=== PATIENT | female | born 2000 | race Hispanic/Latino ===

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

== ENCOUNTER 2019-08-03 14:50 | Inpatient (IN) | payer MEDICAID, OTHER, SELFPAY ==
[~2019-08-03 14:50] MED LIST: Bupivacaine/Epinephrine 0.25% 30 ML VIAL ONE
[2019-08-03] MEDS ORDERED: NS / Oxytocin 40 units/1000ml 1,000 ML IV PRN ×2 (15:31→15:35)
[2019-08-03] MEDS ORDERED: Lidocaine 1% (PF) 30 ML VIAL SC PRN ×2 (15:31→15:35)
[2019-08-03] MEDS: Lactated Ringer's 1,000 ML IV SCH ×2 (15:33→17:13)
[2019-08-03] MEDS ORDERED: Ibuprofen 800 MG TAB PO PRN (15:35)
[2019-08-03] MEDS ORDERED: Ondansetron PF 4 MG/2 ML Vial IVP PRN (15:35)
[2019-08-03] MEDS ORDERED: hydrALAZINE 20 MG/ML VIAL SLOW IVP PRN ×2 (15:35→21:05)
[2019-08-03] MEDS ORDERED: Promethazine HCl 25 MG/ML VIAL IM PRN (15:35)
[2019-08-03] MEDS ORDERED: Acetaminophen 500 MG TAB PO PRN ×2 (15:35→20:18)
--- NOTE | 2019-08-03 15:39 | PDOC.FPROB ---
FMR OB H&P: HPI - History of Present Illness Chief Complaint: contractions Indentification: 19 yo at 38.2 wga by LMP c/w 14.6 wk sono History of Present Illness: Patient presents w/ father of baby saying she had contractions starting at 8 am this morning. Denies LOF and cleve VB. + FM. Noted some brown spotting and mucus. Denies headache, vision changes. Primary Care Physician: PNC: Fred FMR OB H&P: Current - Care : 2 Para: 1001 Gestational age: 38.2 Due date: 08/15/2019 Dating Criteria: LMP c/w 14.6 wk sono Course/Complications: Anemia of - OB Labs Blood type: O RH: positive Antibody Screen: negative HIV: negative RPR: negative HepBsAg: negative Rubella: immune Gonorrhea: negative Chlamydia: negative 1 hour gtt: 54 GBS: negative H&H: 10.4/30.0 Platelets: 267 FMR OB H&P: History - Past Medical History PMH: none - OB History OB History: 1 at 38 weeks. - ENROLLMENT COORDINATOR History ENROLLMENT COORDINATOR History: none - Surgical History Sx History: none - Social History Social History: Denies smoking, drinking alcohol, drugs. - Family History Family History: none FMR OB H&P: Medications - Current Home Medications: Medication Instructions Recorded Confirmed Type No Known 08/03/19 08/03/19 History Allergies/Adverse Reactions: Allergies Allergy/AdvReac Type Severity Reaction Status Date / Time No Known Allergies Allergy Unverified 07/02/17 15:55 FMR OB H&P: ROS - Review of Systems General: denies: fever/chills Eyes: denies: vision changes, double vision ENT: denies: sore throat Cardiovascular: denies: chest pain Respiratory: denies: cough, shortness of breath Gastrointestinal: reports: abdominal pain. denies: nausea, vomiting Genitourinary (Female): reports: contractions. denies: dysuria, vaginal bleeding Musculoskeletal: denies: pain, swelling Neurologic: denies: seizures Integumentary: denies: rash Endocrine: denies: polyuria Hematologic/Lymphatic: denies: prolonged or excessive bleeding Psychological: denies: depression, anxiety FMR OB H&P: Vital Signs - Maternal Vital signs: Vital Signs - First Documented Temp Pulse Resp BP 98.3 F 85 18 112/75 08/03/19 15:12 08/03/19 15:12 08/03/19 15:12 08/03/19 15:12 - Heart Tones Baseline: 147 (cat 1) Variability: moderate Acceleration: present Deceleration: absent Category: category 1 [place] contractions every: 2 min FMR OB H&P: Physical Exam - Physical Exam General: awake, alert and oriented (in moderate distress) HEENT: normocephalic and atraumatic, MMM, conjunctiva clear, no scleral icterus , grossly normal vision, grossly normal hearing, oropharynx clear Neck: trachea midline Heart: RRR, normal S1/S2, no murmurs/rubs/gallops General: CTAB, no respiratory distress Abdomen: soft, gravid Skin: no rash Lymphatic: no unusual bruising or bleeding, no petechia Psychiatric: intact recent and remote memory, normal mood and affect - Pelvic Exam Vulva: normal hair distribution, no masses SVE: /-1 Membranes: intact Presentation: cephalic Estimated Weight: 6 lbs FMR OB H&P: A/P - Problem List (1) Current Visit: Yes Status: Acute Qualifiers: Weeks of gestation: 38 weeks Qualified Code(s): Z3A.38 - 38 weeks gestation of Disposition: 19 yo here in active labor, multiparous: - admit to L&D - GBS neg, no abx indicated - pt desires epidural, consult to anesthesia placed - recheck cervix in 1 hour. - membranes intact - cat 1 strip - continue expectant mgmt Discussion: Date/Time: 08/03/191538 This H&P was discussed with [] and [] who agree with the above documentation and plan. Signature: Shane Piedra MD PGY1 Addendum - Attending - Attending Attestation Date/Time: 08/03/19 418 I personally evaluated the patient and discussed the management with Dr. Piedra. I agree with the History, Examination, Assessment and Plan documented above with any addition or exceptions noted below. Term IUP in labor. GBS negative. Anticipate .
[2019-08-03] MEDS ORDERED: Fentanyl 4 mcg/Bup 0.1% Cadd 100 ML ONE (15:56)
[2019-08-03 16:02] VITALS: BMI 25.1
[2019-08-03 16:05] LABS: Hemoglobin 11.7 g/dL (12.0-16.0); Mean Corpuscular HGB CONC 34.3 g/dL (32.0-36.0); Mean Corpuscular Hemoglobin 28.2 pg (25.0-35.0); Mean Corpuscular Volume 82.2 fL (78.0-98.0); Mean Platelet Volume 10.2 fL (7.4-10.4); Platelet Count 225 thou/uL (130-400); RBC Distribution Width 14.4 % (11.5-14.5); Red Blood Cell (RBC) Count 4.14 mill/uL (4.00-5.20); White Blood Cell (WBC) Count 10.7 thou/uL (4.8-10.8)
[2019-08-03 16:43] LABS: Syphilis Antibody Nonreactive (Nonreactive); Syphilis Antibody Index 0.08 S/CO (<1.00 Non-Reactive)
[2019-08-03 17:13] LABS: HBSAg Index 0.25 S/CO (0-0.99); Hep B Surf Ag Non-Reactive S/CO (NonReactive)
[2019-08-03 17:14] LABS: HIV (1/2) Antibody/Antigen Non-Reactive (NonReactive); HIV 1/2 INDEX 0.12 S/CO (<1.00)
--- NOTE | 2019-08-03 17:42 | PDOC.OBLPN ---
FMR OB Labor PN: Subj - Interval History Hospital Day: 1 Chief Complaint: contractions Indentification: @ 38.2 by 14.5 week sono Interval History: Epidural placed at ~1630. Pain much improved. FMR OB Labor PN: Obj - Maternal Vital signs: BP: 102/59 HR: 69 Wt: 52 kg - Procedures AROM: clear fluid Resuscitative measures: maternal IV fluids FMR OB Labor PN: Exam - Physical Exam General: NAD HEENT: no scleral icterus, grossly normal vision, grossly normal hearing, good dention Neck: supple, FROM General: no respiratory distress Abdomen: gravid, non-tender Neurological: cranial nerves II through XII intact, no focal deficit Psychiatric: intact recent and remote memory, good judgement and insight, normal mood and affect - Pelvic Exam Vulva: normal hair distribution, appropriate seamus stage, no masses, no lesions Deviation from normal: scant amount of curd-like white d/c noted on SVE SVE: /-1 @ 1737 Milian score: 11 Membranes: ruptured @ ~1737 Presentation: cephalic FMR OB Labor PN: Data - Labs Lab results: Laboratory Results - last 24 hr 08/03/19 08/03/19 08/03/19 15:47 15:47 15:47 WBC 10.7 RBC 4.14 Hgb 11.7 L Hct 34.1 L MCV 82.2 MCH 28.2 MCHC 34.3 RDW 14.4 Plt Count 225 MPV 10.2 Syphilis IgG/IgM Ab Nonreactive Hep Bs Antigen Non-Reactive HIV 1&2 Antigen & Ab Non-Reactive Blood Type Antibody Screen 08/03/19 15:47 WBC RBC Hgb Hct MCV MCH MCHC RDW Plt Count MPV Syphilis IgG/IgM Ab Hep Bs Antigen HIV 1&2 Antigen & Ab Blood Type O POSITIVE Antibody Screen NEGATIVE FMR OB Labor PN: A/P - Problem List (1) Current Visit: Yes Status: Acute Qualifiers: Weeks of gestation: 38 weeks Qualified Code(s): Z3A.38 - 38 weeks gestation of (2) Anemia affecting in third trimester Current Visit: Yes Status: Chronic Code(s): O99.013 - ANEMIA COMPLICATING , THIRD TRIMESTER (3) Vulvovaginal candidiasis Current Visit: Yes Status: Acute Code(s): B37.3 - CANDIDIASIS OF VULVA AND VAGINA Disposition: 18 yo @ 38.2 WGA by 14.5 sono who presented to L&D in active labor. # @ 38.2 WGA by 14.5 sono in active labor: - Epidural placed @ ~1630. Patient resting comfortably through contractions. - cat 1 strip, vivi regularly every 2-3 minutes. - AROM @ ~1737 following polo & epidural placement. Clear fluid noted. - GBS neg, no abx indicated - continue expectant mgmt, repeat SVE in 1-2 hours or sooner should patient report increased pressure #anemia in : - H/H 11.7/34.1 on admission - Resume PNVs PP. #Vulvovaginal candidiasis: - Will treat w/ PO flagyl following delivery. Discussion: Date/Time: 08/03/19 464 This H&P was discussed with Dr. Troncoso who agrees with the above documentation and plan.
--- NOTE | 2019-08-03 19:20 | PDOC.OBLPN ---
FMR OB Labor PN: Subj - Interval History Hospital Day: 1 Chief Complaint: contractions Indentification: @ 38.2 WGA by 14.5 week sono Interval History: Repeat SVE revealed patient was /0. FMR OB Labor PN: Obj - Maternal Vital signs: BP: 118/69 HR: 70 Wt: 52 kg - Procedures AROM: clear fluid Resuscitative measures: maternal IV fluids, maternal position change FMR OB Labor PN: Exam - Physical Exam General: NAD HEENT: grossly normal vision, grossly normal hearing Neck: supple, FROM General: no respiratory distress Abdomen: gravid Musculoskeletal: FROM in all four extremities Neurological: cranial nerves II through XII intact, sensation to pain,touch and proprioception grossly normal, no focal deficit Skin: no rash, good tugor Psychiatric: intact recent and remote memory, good judgement and insight, normal mood and affect - Pelvic Exam Vulva: normal hair distribution, appropriate seamus stage, no masses, no blood SVE: /0 Membranes: ruptured Presentation: cephalic FMR OB Labor PN: Data - Labs Lab results: Laboratory Results - last 24 hr 08/03/19 08/03/19 08/03/19 15:47 15:47 15:47 WBC 10.7 RBC 4.14 Hgb 11.7 L Hct 34.1 L MCV 82.2 MCH 28.2 MCHC 34.3 RDW 14.4 Plt Count 225 MPV 10.2 Syphilis IgG/IgM Ab Nonreactive Hep Bs Antigen Non-Reactive HIV 1&2 Antigen & Ab Non-Reactive Blood Type Antibody Screen 08/03/19 15:47 WBC RBC Hgb Hct MCV MCH MCHC RDW Plt Count MPV Syphilis IgG/IgM Ab Hep Bs Antigen HIV 1&2 Antigen & Ab Blood Type O POSITIVE Antibody Screen NEGATIVE FMR OB Labor PN: A/P - Problem List (1) Current Visit: Yes Status: Acute Qualifiers: Weeks of gestation: 38 weeks Qualified Code(s): Z3A.38 - 38 weeks gestation of (2) Anemia affecting in third trimester Current Visit: Yes Status: Chronic Code(s): O99.013 - ANEMIA COMPLICATING , THIRD TRIMESTER (3) Vulvovaginal candidiasis Current Visit: Yes Status: Acute Code(s): B37.3 - CANDIDIASIS OF VULVA AND VAGINA Disposition: 18 yo @ 38.2 WGA by 14.5 sono who presented to L&D in active labor. # @ 38.2 WGA by 14.5 sono in active labor: - Epidural placed @ ~1630 w/ AROM @ ~1737. Clear fluid noted. Repeat SVE @ 191 10/100/0. - Patient resting comfortably through contractions. Cat 1 strip, vivi regularly every 2-3 minutes. - GBS neg, no abx indicated - continue expectant mgmt, repeat SVE in 1 hour or sooner should patient report increased pressure; will change maternal position in an attempt to assist with descent #anemia in : - H/H 11.7/34.1 on admission - Resume PNVs PP. #Vulvovaginal candidiasis: - Documented infection per chart review from office visit on 07/30/19 & thick white d/c noted on first SVE. - Will treat w/ PO flagyl following delivery. Discussion: Date/Time: 08/03/191917 This H&P was discussed with Dr. Retana who agrees with the above documentation and plan.
--- NOTE | 2019-08-03 20:28 | PDOC.OPDEL ---
OB Operative/Delivery Note Delivery Dr/Surgeon: Scott Pre-Delivery Diagnosis: active labor Procedure/Post Delivery Dx: spontaneous vaginal delivery Anesthesia: epidural - Findings new baby Sex: female - 1 min: 9 - 5 min: 9 - Additional Findings/Plan Placenta delivered: spontaneous Repaired Obstetrical Laceration: none Estimated blood loss: QBL 225 Compilations/Other Findings: Delivering Physician: Guerrero Ibarra Attending: Mazin Procedure: Spontaneous Vaginal Delivery Anesthesia: epidural QBL: 225 ml Pre-op Diagnosis: 1. Term intrauterine in labor Post-op Diagnosis: 1. Term intrauterine , delivered Indications: A 18 y/o female presents in active labor. Delivery Note: This is 18 yo F @ 38.2 wks who delivered a viable F at 1953 on 08/03/19. Following an uneventful antepartum course, a vigorous F was delivered over an intact perineum in the straight occipitoanterior position. Shoulders and then remainder of the body delivered. No nuchal cord. The head was held down and mouth and nares were bulb suctioned. Cord clamped after delayed cord clamping and cut and cord blood collected. Placenta delivered intact in the Eason presentation with a 3 vessel cord noted. Fundal massage was performed and the fundus was firm. The cervix and vagina were inspected and found to be free of lacerations. went to nursery in good condition for routine care. Apgars were 9/9 at 1 & 5 minutes, respectively. Patient tolerated delivery well and went to after routine recovery/ care. Post delivery plan: routine recovery Addendum - Attending - Attending Attestation Date/Time: 08/04/19 0215 I personally assisted with and supervised the .
[2019-08-03] MEDS ORDERED: FLU VACC QS2019-20(6MOS UP)/PF 60 MCG/0.5 ML SYRINGE IM ONE (21:00)
[2019-08-03] MEDS ORDERED: Lanolin Ointment 7 GM TUBE TOP PRN (21:05)
[2019-08-03] MEDS ORDERED: Bisacodyl 10 MG SUPP PR PRN (21:05)
[2019-08-03] MEDS ORDERED: Diphenoxylate HCl/Atropine Tablet PO PRN ×2 (21:05)
[2019-08-03] MEDS ORDERED: NS / Oxytocin 40 units/1000ml 1,000 ML IV SCH (21:05)
[2019-08-03] MEDS ORDERED: Misoprostol 200 MCG TAB PR PRN (21:05)
[2019-08-03] MEDS ORDERED: Methylergonovine 0.2 MG/ML VIAL IM PRN (21:05)
[2019-08-03] MEDS ORDERED: diphenhydrAMINE 25 MG CAP PO PRN (21:05)
[2019-08-03] MEDS ORDERED: Milk Of Magnesia 30 ML UDCUP PO PRN (21:05)
[2019-08-03] MEDS ORDERED: Carboprost 250 MCG/ML AMP IM PRN (21:05)
[2019-08-03] MEDS ORDERED: Docusate Calcium (SURFAK) 240 MG CAP PO SCH (21:15)
[2019-08-03] MEDS: Ibuprofen 800 MG TAB PO SCH (22:32)
[2019-08-04] MEDS: Ibuprofen 800 MG TAB PO SCH ×3 (05:39→21:23)
--- NOTE | 2019-08-04 07:06 | PDOC.OBPPN ---
FMR OB PN: Subj - Interval History Hospital Day: 2 Day: 1 Chief Complaint: None Indentification: G2 now P2002 who is PP day #1 s/p term . Interval History: Tolerating PO & ambulating. Pain controlled. No yet voided. FMR OB PN: Obj - Maternal Vital signs: BP: 100/54 HR: 61 RR: 16 Tmax: 98.3F Pox: 98% on RA Wt: 52.617 kg - Urine output I&O: 08/03/19 08/04/19 08/05/19 06:59 06:59 06:59 Output Total 278 Balance -278 - Lochia Lochia: normal - Pain Management Pain scale: 0 Intervention: oral medication FMR OB PN: Exam - Physical Exam General: NAD, awake, alert and oriented HEENT: no scleral icterus, grossly normal vision, grossly normal hearing Neck: supple, FROM Heart: RRR, normal S1/S2, pulses present, no edema General: CTAB, no respiratory distress, good air movement, no rales/rhonchi, no wheezing, no retractions Abdomen: soft, fundus(cm) (firm below the umbilicus), bowel sound present Musculoskeletal: normal gait and station, FROM in all four extremities Neurological: cranial nerves II through XII intact, sensation to pain,touch and proprioception grossly normal, no focal deficit Skin: no rash, capillary refill <2 seconds Lymphatic: no unusual bruising or bleeding, no purpura, no petechia Psychiatric: intact recent and remote memory, good judgement and insight, normal mood and affect - Pelvic Exam : no edema, normal lochia FMR OB PN: Data - Labs Lab results: Laboratory Results - last 24 hr 08/03/19 08/03/19 08/03/19 15:47 15:47 15:47 WBC 10.7 RBC 4.14 Hgb 11.7 L Hct 34.1 L MCV 82.2 MCH 28.2 MCHC 34.3 RDW 14.4 Plt Count 225 MPV 10.2 Syphilis IgG/IgM Ab Nonreactive Hep Bs Antigen Non-Reactive HIV 1&2 Antigen & Ab Non-Reactive Blood Type Antibody Screen 08/03/19 15:47 WBC RBC Hgb Hct MCV MCH MCHC RDW Plt Count MPV Syphilis IgG/IgM Ab Hep Bs Antigen HIV 1&2 Antigen & Ab Blood Type O POSITIVE Antibody Screen NEGATIVE FMR OB PN: A/P - Problem List (1) Current Visit: Yes Status: Acute Qualifiers: Weeks of gestation: 38 weeks Qualified Code(s): Z3A.38 - 38 weeks gestation of (2) Anemia affecting in third trimester Current Visit: Yes Status: Chronic Code(s): O99.013 - ANEMIA COMPLICATING , THIRD TRIMESTER (3) Vulvovaginal candidiasis Current Visit: Yes Status: Acute Code(s): B37.3 - CANDIDIASIS OF VULVA AND VAGINA Disposition: 18 yo G2 now P2002 who is PP day #1 s/p @ 38.2 WGA. #PP day #1 s/p term : - Tolerating PO and ambulating normally. Denies passing any flatus or voiding yet. Will monitor I&Os closely. Continue KELVIN motrin for pain control. Continue routine PP care. #anemia in : - H/H 11.7/34.1 on admission - Resume PNVs today. #Vulvovaginal candidiasis: - Documented infection per chart review from office visit on 07/30/19 & thick white d/c noted on first SVE. - Will treat w/ PO flagyl 150mg x1 this AM. #elevated BP w/o diagnosis of HTN or hypertensive disorder or : - had 1 elevated BP since delivery at 147/64 @ 22:15 last night. All BPs normal since. Denies any CREWS, vision changes, CP, SOB or LE edema. Will continue to monitor vitals closely. Dispo: Anticipate d/c home tomorrow pending clinical course. Discussion: Date/Time: 08/04/19 0705 This H&P was discussed with Dr. Adamson who agrees with the above documentation and plan. Addendum - Attending - Attending Attestation Date/Time: 08/04/19 1017 I personally evaluated the patient and discussed the management with Dr. Ibarra I agree with the History, Examination, Assessment and Plan documented above with any addition or exceptions noted below - Patient wihtout complaints. HAs not urinate yet. Afebrile VSS. A/P: 1) PPD#1 s/p - continue current care. Will check bladder scan and plan for I/O cath if unable to void.
[2019-08-04] MEDS: Ferrous Sulfate 325 MG TAB PO SCH ×2 (08:03→13:03)
[2019-08-04] MEDS: Docusate Calcium (SURFAK) 240 MG CAP PO SCH ×2 (08:04→21:23)
[2019-08-04] MEDS: Prenatal Vitamin 1 TAB PO SCH (08:04)
[2019-08-04] MEDS ORDERED: Fluconazole 100 MG TAB PO SCH (09:00)
[2019-08-05] MEDS: Ibuprofen 800 MG TAB PO SCH (06:23)
--- NOTE | 2019-08-05 06:53 | PDOC.OBPPN ---
FMR OB PN: Subj - Interval History Hospital Day: 3 Day: 2 Chief Complaint: None Indentification: G2 now P2002 who is PP day #2 s/p term . Interval History: Urinary retention resolved yesterday AM. Tolerating PO and ambulating. FMR OB PN: Obj - Maternal Vital signs: BP: 105/59 HR: 60 RR: 16 Tmax: 98.4F Pox: 95% on RA Wt: 52 kg - Urine output I&O: 08/03/19 08/04/19 08/05/19 06:59 06:59 06:59 Output Total 278 2450 Balance -278 -2450 - Lochia Lochia: normal - Pain Management Pain scale: 0 Intervention: oral medication FMR OB PN: Exam - Physical Exam General: NAD, awake, alert and oriented HEENT: normocephalic and atraumatic, MMM, grossly normal vision, grossly normal hearing Neck: supple, FROM Heart: RRR, normal S1/S2, pulses present, no edema General: CTAB, no respiratory distress, good air movement, no rales/rhonchi, no wheezing, no retractions Abdomen: soft, fundus(cm) (firm just below the umbilicus), bowel sound present Musculoskeletal: normal gait and station, FROM in all four extremities Neurological: cranial nerves II through XII intact, sensation to pain,touch and proprioception grossly normal, no focal deficit Skin: no rash, good tugor : no edema, appropriately tender Psychiatric: intact recent and remote memory, good judgement and insight, normal mood and affect FMR OB PN: A/P - Problem List (1) Status: Acute Qualifiers: Weeks of gestation: 38 weeks Qualified Code(s): Z3A.38 - 38 weeks gestation of (2) Anemia affecting in third trimester Status: Chronic Code(s): O99.013 - ANEMIA COMPLICATING , THIRD TRIMESTER (3) Vulvovaginal candidiasis Status: Acute Code(s): B37.3 - CANDIDIASIS OF VULVA AND VAGINA Disposition: 18 yo G2 now P2002 who is PP day #2 s/p @ 38.2 WGA. #PP day #2 s/p term : - Tolerating PO and ambulating & voiding normally. Endorses having had a BM yesterday. Continue KELVIN motrin for pain control. Continue routine PP care. #anemia in : - H/H 11.7/34.1 on admission - Continue PNVs. #Vulvovaginal candidiasis: - Documented infection per chart review from office visit on 07/30/19 & thick white d/c noted on first SVE. - s/p PO flagyl 150mg x1 yesterday. #elevated BP w/o diagnosis of HTN or hypertensive disorder or : - had 1 elevated BP since delivery at 147/64 @ 22:15 on 08/03/19. All BPs normal since. Denies any CREWS, vision changes, CP, SOB or LE edema. Will continue to monitor vitals closely. Dispo: Anticipate d/c home today w/ f/u @ [facility] in 2 weeks. Discussion: Date/Time: 08/05/19 7148 This H&P was discussed with Dr. Adamson who agrees with the above documentation and plan. Addendum - Attending - Attending Attestation Date/Time: 08/05/19 1346 I personally evaluated the patient and discussed the management with Dr. Ibarra I agree with the History, Examination, Assessment and Plan documented above with any addition or exceptions noted below - Patient without complaints. Afebrile VSS. A/P: 1) PPD#2 s/p - plan to d/c home today. F/U in 2 weeks at [facility].
[2019-08-05 08:33] VITALS: BP 105/59; TEMP 98.4
[2019-08-05] MEDS: Ferrous Sulfate 325 MG TAB PO SCH (09:33)
[2019-08-05] MEDS: Docusate Calcium (SURFAK) 240 MG CAP PO SCH (09:34)
[2019-08-05] MEDS: Prenatal Vitamin 1 TAB PO SCH (09:34)
== END 2019-08-05 13:30 | disposition home or self-care (01) | DRG 806 ==
LOC: L&D/OP 14:50 → EDBD 14:50 → L&D 15:55 → 3SW 22:09
PROVIDERS: ADMIT Obstetrics & Gynecology; ATTEND Obstetrics & Gynecology
PROC: 10907ZC Drainage of Amniotic Fluid, Therapeutic from Products of Conception, Via Natural or Artificial Opening (ICD-10-PCS; 2019-08-03)
PROC: 10E0XZZ Delivery of Products of Conception, External Approach (ICD-10-PCS; principal; 2019-08-04)
DX: O99.02 Anemia complicating childbirth (principal); O98.82 Other maternal infectious and parasitic diseases complicating childbirth; Z37.0 Single live birth; Z3A.38 38 weeks gestation of pregnancy; D64.9 Anemia, unspecified; B37.3 Candidiasis of vulva and vagina; R03.0 Elevated blood-pressure reading, without diagnosis of hypertension
CPT/HCPCS: 36415; 51702; 85027; 86780; 86850; 86900; 86901; 87340; 87389; 99285; J2001

== ENCOUNTER 2025-05-27 00:56 | Emergency (ER) | payer MEDICAID, SELFPAY ==
[2025-05-27 02:06] LABS: #Basophils Less than 0.03 10x3/uL (0.0-0.2); #Eosinophils 0.11 10x3/uL (0.0-0.7); #Monocytes 0.49 10x3/uL (0.11-0.59); #Neutrophils 3.71 10x3/uL (1.40-6.50); %Basophils 0.3 % (0.0-1.0); %Eosinophils 1.7 % (0.0-10.0); %Lymphocytes 32.4 % (21.0-51.0); %Monocytes 7.6 % (0.0-10.0); %Neutrophils 57.8 % (42.0-75.0); Hematocrit 42.1 % (36.0-47.0); Hemoglobin 14.1 g/dL (12.0-16.0); Mean Corpuscular Hemoglobin 30.5 pg (27.0-31.0); Mean Corpuscular Volume 90.9 fL (78.0-98.0); Platelet Count 214 10x3/uL (130-400); Red Blood Cell (RBC) Count 4.63 mill/uL (4.20-5.40); White Blood Cell (WBC) Count 6.42 10x3/uL (4.8-10.8)
[2025-05-27 02:28] LABS: ALT (SGPT) 13 U/L (Less than 34); AST (SGOT) 14 U/L (11-34); Albumin 4.6 g/dL (3.1-4.5); Alkaline Phosphatase 81 U/L (40-110); Anion Gap 11 mmol/L (10-20); BUN (Urea Nitrogen) 18 mg/dL (7.0-18.7); Bilirubin, Total 0.3 mg/dL (0.3-1.2); Calc. Creatinine Clearance 0 mL/min (70-130); Calcium 9.3 mg/dL (7.8-10.44); Carbon Dioxide 24 mmol/L (22-29); Chloride 106 mmol/L (98-107); Globulin 3.3 g/dL (2.4-3.5); Glucose 99 mg/dL (70-105); Lipase 31 U/L (8-78); Potassium 3.9 mmol/L (3.5-5.1); Sodium 137 mmol/L (136-145)
[2025-05-27] MEDS ORDERED: Ketorolac Tromethamine 30 MG (1 mL) VIAL ONE (03:01)
[2025-05-27] MEDS ORDERED: Ondansetron PF 4 MG/2 ML Vial ONE (03:01)
[2025-05-27 04:40] LABS: CAUTI Indications for Culture Dysuria,urgency,freq; Glucose, Urine (Dipstick) Normal (Negative); Leukocyte Negative Leu/uL (Negative); Protein, Urine (Dipstick) Negative (Neg-Trace); RBC/HPF None Seen HPF (0-3); Specific Gravity, Urine 1.030 (1.002-1.036); WBC/HPF None Seen HPF (0-3)
[2025-05-27 04:42] LABS: Bacteria/HPF 1+ HPF (None Seen)
[2025-05-27 04:43] LABS: Pregnancy Test - Urine (BHCG) Negative (Negative); Pregu Control Background? CLEAR/WHITE (CLR/WHITE); Pregu Control Bar Appear? YES (CONTROL BAR)
[2025-05-27 04:44] LABS: Urine Culture Reflex No No
== END 2025-05-27 08:02 | disposition home or self-care (01) ==
LOC: ERS 00:56
DX: N83.201 Unspecified ovarian cyst, right side (principal); R10.11 Right upper quadrant pain; N13.2 Hydronephrosis with renal and ureteral calculous obstruction
CPT/HCPCS: 36415; 74176; 76705; 76856; 80053; 81001; 81025; 83690; 85025; 93976; 96361; 96374; 96375; J1885; J2405